=== PATIENT | male | born 1975 | race Two or more races ===

== ENCOUNTER 2022-08-30 19:57 | Emergency (ER) | payer SELFPAY ==
[~2022-08-30] VITALS: Ht 180.3 cm; Wt 77.3 kg
[2022-08-30 22:04] VITALS: BP 140/88
[2022-08-30] MEDS ORDERED: ELVI1TAB5 PO (22:33)
== END 2022-08-30 22:38 | disposition home or self-care (01) ==
LOC: ER 20:03
DX: R69 Illness, unspecified (principal); Z76.0 Encounter for issue of repeat prescription; Z79.899 Other long term (current) drug therapy